=== PATIENT | female | born 2000 | race African-American/Black ===

== ENCOUNTER → 2020-12-27 | Outpatient (CLI) | payer BC, OTHER ==
--- NOTE | 2020-12-27 14:45 | KCIC ---
EXAM: Left foot, 3 views. HISTORY: Pain. COMPARISON: None. FINDINGS: 3 views of the left foot are obtained. There is no fracture, dislocation or subluxation. Th ere is no foreign body. IMPRESSION: No acute osseous finding. Electronically signed by: Lori Mcgarry MD (12/27/2020 2:43 PM) [id number]
== END ==
LOC: KCIC 14:18
PROVIDERS: ATTEND Family Medicine
DX: M79.672 Pain in left foot (principal); M79.89 Other specified soft tissue disorders
CPT/HCPCS: 73630